=== PATIENT | female | born 1945 | race Caucasian/White ===

== ENCOUNTER → 2016-08-15 | Outpatient (CLI) | payer MEDICARE, OTHER ==
[~2016-08-15] MED LIST: ASA325 MG PO; CELEBREX100 MG PO; LIPITOR DPS40 MG PO; LOPRESSOR DPS12.5 MG PO; NORVASC5 MG PO; OXY IR DPS5 MG PO; PLAVIX75 MG PO; PRILOSEC DPS20 MG PO; SENOKOT S1 TAB PO; TYLENOL DPS325 MG PO; ULTRAM DPS50 MG PO
== END | disposition home or self-care (01) ==
LOC: RAD.S 09:18
DX: Z12.31 Encounter for screening mammogram for malignant neoplasm of breast (principal); R92.1 Mammographic calcification found on diagnostic imaging of breast